=== PATIENT | female | born 1960 | race Caucasian/White ===

== ENCOUNTER 2017-09-09 13:50 | Outpatient (CLI) | payer OTHER ==
--- NOTE | 2017-09-09 14:35 | BD ---
BONE DENSITOMETRY USING DEXA: Date: 09/09/17 HISTORY: Postmenopausal screening for osteoporosis. FINDINGS: Lumbar Spine: BMD (g/cm2) L1 1.091 T-Score: 0.9 Z-Score: 1.9 L2 1.154 T-Score: 1.1 Z-Score: 2.3 L3 1.184 T-Score: 0.0 Z-Score: 2.1 L4 1.160 T-Score: 0.9 Z-Score: 2.1 L1-L4 1.146 T-Score: 0.9 Z-Score: 2.1 Femoral Neck: 0.710 T-Score: -1.3 Z-Score: -0.1 Total Femur: 0.854 T-Score: -0.7 Z-Score: 0.0 The 10 year fracture risk for a major osteoporotic fracture is 31% and for a hip fracture is 1.3%. IMPRESSION: Osteopenia. POS: SHOAIB
--- NOTE | 2017-09-09 14:50 | MMO ---
BILATERAL DIGITAL SCREENING MAMMOGRAMS: Date: 09/09/17 This patient's mammogram was interpreted with the assistance of computer-aided detection. Comparison made with exams of 06/28/16, 05/10/15, and 03/31/14. FINDINGS: The breast tissue is heterogeneously dense, which may reduce the sensitivity of mammography. No susp icious masses or calcifications are identified. IMPRESSION: BIRADS 1: Negative Return to annual mammographic screening. POS: SHOAIB
== END 2017-09-09 13:51 | disposition home or self-care (01) ==
LOC: MAMMO 13:50
PROVIDERS: ATTEND Family Medicine
DX: Z12.31 Encounter for screening mammogram for malignant neoplasm of breast (principal); Z00.00 Encounter for general adult medical examination without abnormal findings; M85.80 Other specified disorders of bone density and structure, unspecified site
CPT/HCPCS: 77067; 77080; G0202

== ENCOUNTER 2018-09-25 11:48 | Outpatient (CLI) | payer OTHER | END 2018-09-25 11:49 | disposition home or self-care (01) | LOC: BICMAMMO 11:48 | PROVIDERS: ATTEND Family Medicine | DX: Z12.31 Encounter for screening mammogram for malignant neoplasm of breast (principal); Z80.3 Family history of malignant neoplasm of breast | CPT/HCPCS: 77063; 77067 ==

== ENCOUNTER 2019-08-10 07:35 | Day surgery (SDC) | payer OTHER ==
[2019-08-03 16:27] VITALS: BMI 34.6
[2019-08-10] MEDS ORDERED: Gabapentin 300 MG CAP ONE (07:48)
[2019-08-10] MEDS ORDERED: Famotidine/PF 20 mg/2ml Vial ONE ×2 (07:48→10:07)
[2019-08-10] MEDS ORDERED: Midazolam HCl 2 mg/2 ml Vial ONE (09:00)
[2019-08-10] MEDS ORDERED: Fentanyl 100 MCG/2 ML VIAL ONE ×2 (10:07→12:27)
[2019-08-10] MEDS ORDERED: Lidocaine 1% w/Epinephrine 1:100K 20 ML VIAL ONE (10:10)
[2019-08-10] MEDS ORDERED: SUGAMMADEX SODIUM 200 MG/2 ML VIAL ONE (10:25)
--- NOTE | 2019-08-10 14:21 | OP ---
DATE OF PROCEDURE: 08/10/2019 PREOPERATIVE DIAGNOSIS: Rectocele. POSTOPERATIVE DIAGNOSIS: Rectocele. PROCEDURE PERFORMED: Posterior colporrhaphy. ANESTHESIA: General endotracheal. GUEST RELATIONS OFFICER SURGEON: Ethel Soto PA-C ESTIMATED BLOOD LOSS: 25 mL. IVF: 1300 mL crystalloid. URINE OUTPUT: 75 mL clear urine at the beginning. COMPLICATIONS: None. DRAINS: None. PATHOLOGY: None. FINDINGS: Moderate-sized stage II rectocele. Minimal cystocele was present. There was no uterine descent. The uterus was well supported. There was not a significant enough cystocele for any anterior repair. Excellent hemostasis present. No suture material or perforation into the rectum. DESCRIPTION OF PROCEDURE: The patient was taken to operating room, where general anesthesia was obtained without difficulty. The patient was prepped and draped in a sterile fashion in dorsal lithotomy position. After draining the bladder, two Allis' were placed at 5 and 7 o'clock on the introitus, and the posterior vaginal mucosa was infiltrated with 1% lidocaine with epinephrine 10 mL. The Metzenbaum's were then used to incise in the midline posteriorly at the introitus and the vaginal mucosa was undermined with the Metzenbaum's and then incised. Allis' were placed on the edges of the vaginal mucosa. This was taken almost all the way up to the cervix. The rectovaginal fascia was then dissected off the vaginal mucosa with the use of Metzenbaum's as well as a fluffed-out Ray-Chicho. Hemostasis was achieved with the Bovie. Plication stitches of 0 Vicryl were then placed from proximal to distal with excellent plication. There were defects in the rectovaginal fascia that were repaired and incorporated into the plication. At that time, the vaginal mucosa was trimmed and then closed with 0 Vicryl in a [id number] fashion with excellent hemostasis noted. The rectum was then examined and no suture material was present in the rectum with excellent plication. Vaginal packing with a moist Kerlix was placed in the vagina. All other instruments were removed out of the vagina. The patient tolerated the procedure well. Sponge and needle counts were correct x2. The patient was taken to recovery room in stable condition. The patient received Ancef 2 g prior to the procedure. Job ID: [id number]
== END 2019-08-10 14:45 | disposition home or self-care (01) ==
LOC: SDC 07:35
PROVIDERS: ATTEND Student in an Organized Health Care Education/Training Program
PROC: 0JQC0ZZ Repair Pelvic Region Subcutaneous Tissue and Fascia, Open Approach (ICD-10-PCS; principal; 2019-08-10)
DX: N81.6 Rectocele (principal); M85.80 Other specified disorders of bone density and structure, unspecified site; G89.18 Other acute postprocedural pain; Z79.899 Other long term (current) drug therapy; Z88.2 Allergy status to sulfonamides
CPT/HCPCS: J0131; J0690; J2001; J2250; J3010; S0028

== ENCOUNTER 2019-08-17 15:24 | Outpatient (CLI) | payer OTHER ==
--- NOTE | 2019-08-17 16:19 | RAD ---
LEFT HIP TWO VIEWS: 08/17/19 HISTORY: Left hip pain. COMPARISON: Prior exam dated 02/04/16. FINDINGS: There is moderate to severe osteoarthrosis of the left hip. There are bilateral tubal ligation clips. No acute fracture or subluxation is evident. IMPRESSION: Degenerative arthrosis of the left hip. POS: OFF
--- NOTE | 2019-08-17 16:20 | RAD ---
AP VIEW OF THE PELVIS: 08/17/19 INDICATION: History of left hip pain. COMPARISON: None. FINDINGS: There is moderate to severe left and moderate right degenerative arthrosis of the hips. There are zamzam ateral tubal ligation clips. There are small phleboliths in the lower pelvis. No acute osseous abnorm ality is evident. IMPRESSION: Bilateral degenerative arthrosis of the hip. POS: OFF
== END 2019-08-17 15:25 | disposition home or self-care (01) ==
LOC: BICRAD 15:24
PROVIDERS: ATTEND Physician Assistant
DX: M25.552 Pain in left hip (principal); M16.0 Bilateral primary osteoarthritis of hip
CPT/HCPCS: 72170

== ENCOUNTER 2019-09-01 08:59 | Outpatient (CLI) | payer OTHER ==
--- NOTE | 2019-09-01 12:02 | MRI ---
LUMBAR SPINE MRI WITH AND WITHOUT CONTRAST: Date: 09/01/19 COMPARISON: None. HISTORY: Low back pain with left-sided hip pain radiating into the left lower extremity. TECHNIQUE: Multiplanar, multisequence MR imaging of the lumbar spine obtained with and without contrast. FINDINGS: The sagittal STIR imaging demonstrates no focal area of osseous marrow edema. No anterolisthesis or retrolisthesis noted within the lumbar spine. On the basis of five lumbar-type vertebral bodies, the conus medullaris terminates at the L1 level. T11-12: There is disc space narrowing and disc desiccation with mild disc bulge and mild bilateral f acet hypertrophy. Mild bilateral neural foraminal stenosis noted, right greater than left. Mild centr al canal stenosis. T12-L1: Mild bilateral facet hypertrophy. Disc space narrowing and disc desiccation with mild disc b ulge. No significant central canal or neural foraminal stenosis. L1-2: Mild bilateral facet hypertrophy. No significant central canal or neural foraminal stenosis. L2-3: Bilateral facet hypertrophy with hypertrophy of ligamentum flavum. There is disc space narrowi ng, disc desiccation, and mild disc bulge with mild central canal stenosis. Mild bilateral facet hype rtrophy. No significant neural foraminal stenosis. L3-4: Mild bilateral facet hypertrophy. Disc space narrowing, disc desiccation, and mild disc bulge. Mild right lateral recess stenosis and mild right neural foraminal stenosis. No significant left mychal ral foraminal stenosis. L4-5: Disc space narrowing, disc desiccation, and mild disc bulge. Bilateral facet hypertrophy. Mild bilateral neural foraminal stenosis. No significant central canal stenosis. L5-S1: There is disc desiccation and mild disc bulge. There is bilateral facet hypertrophy. Mild zamzam ateral neural foraminal stenosis. No significant central canal stenosis. The visualized retroperitoneal structures demonstrate no acute findings. Postcontrast imaging demonstrates no abnormal enhancement involving the contents of the thecal sac, i wilfred intervertebral discs, or the imaged osseous structures. IMPRESSION: Multilevel degenerative change within the lumbar spine as described above. POS: TPC
== END 2019-09-01 09:00 | disposition home or self-care (01) ==
LOC: BICMRI 08:59
PROVIDERS: ATTEND Physician Assistant
DX: M25.552 Pain in left hip (principal); M54.32 Sciatica, left side; M54.5 Low back pain; M47.816 Spondylosis without myelopathy or radiculopathy, lumbar region
CPT/HCPCS: 72158

== ENCOUNTER 2019-11-29 14:52 | Outpatient (CLI) | payer OTHER ==
--- NOTE | 2019-11-29 16:13 | MMO ---
Bilateral MAMMO Bilat Screen [facility]. CLINICAL HISTORY: Patient is 59 years old and is seen for screening. The patient has no family history of breast cancer. The patient has no personal history of cancer. VIEWS: The views performed were: bilateral craniocaudal with tomosynthesis and bilateral mediolateral oblique with tomosynthesis. FILMS COMPARED: The present examination has been compared to prior imaging studies performed at [facility] on 05/10/2015, 06/28/2016, 09/09/2017 and 09/25/2018. This study has been interpreted with the assistance of computer-aided detection. MAMMOGRAM FINDINGS: The breasts are heterogeneously dense, which could obscure a lesion on mammography. There are no suspicious masses, suspicious calcifications, or new areas of architectural distortion. IMPRESSION: THERE IS NO MAMMOGRAPHIC EVIDENCE OF MALIGNANCY. A ROUTINE FOLLOW-UP MAMMOGRAM IN 1 YEAR IS RECOMMENDED. THE RESULTS OF THIS EXAM WERE SENT TO THE PATIENT. ACR BI-RADS Category 1 - Negative MAMMOGRAPHY NOTE: 1. A negative mammogram report should not delay a biopsy if a dominant of clinically suspicious mass is present. 2. Approximately 10% to 15% of breast cancers are not detected by mammography. 3. Adenosis and dense breasts may obscure an underlying neoplasm. Reported by: RIYA GUZMAN MD Electonically Signed: [id number]
== END 2019-11-29 14:53 | disposition home or self-care (01) ==
LOC: BICMAMMO 14:52
PROVIDERS: ATTEND Family Medicine
DX: Z12.31 Encounter for screening mammogram for malignant neoplasm of breast (principal)
CPT/HCPCS: 77063; 77067

== ENCOUNTER 2020-12-25 10:44 | Outpatient (CLI) | payer OTHER ==
--- NOTE | 2020-12-25 11:37 | MMO ---
Bilateral MAMMO Bilat Screen [facility]. CLINICAL HISTORY: Patient is 60 years old and is seen for screening. The patient has the following family history of breast cancer: maternal grandmother. The patient has no personal history of cancer. VIEWS: The views performed were: bilateral craniocaudal with tomosynthesis and bilateral mediolateral oblique with tomosynthesis. FILMS COMPARED: The present examination has been compared to prior imaging studies performed at [facility] on 06/28/2016, 09/09/2017, 09/25/2018 and 11/29/2019. This study has been interpreted with the assistance of computer-aided detection. MAMMOGRAM FINDINGS: The breasts are heterogeneously dense, which could obscure a lesion on mammography. There are no suspicious masses, suspicious calcifications, or new areas of architectural distortion. IMPRESSION: THERE IS NO MAMMOGRAPHIC EVIDENCE OF MALIGNANCY. A ROUTINE FOLLOW-UP MAMMOGRAM IN 1 YEAR IS RECOMMENDED. THE RESULTS OF THIS EXAM WERE SENT TO THE PATIENT. ACR BI-RADS Category 1 - Negative MAMMOGRAPHY NOTE: 1. A negative mammogram report should not delay a biopsy if a dominant of clinically suspicious mass is present. 2. Approximately 10% to 15% of breast cancers are not detected by mammography. 3. Adenosis and dense breasts may obscure an underlying neoplasm. Reported by: KELTON UGALDE MD Electonically Signed: [id number]
--- NOTE | 2020-12-25 11:52 | BD ---
DEXA BONE DENSITY STUDY: Date: 12/25/2020 HISTORY: Osteoporosis screening. COMPARISON: None. FINDINGS: Lumbar Spine: BMD (g/cm2) L1 1.014 T-Score: 0.2 Z-Score: 1.4 L2 1.147 T-Score: 1.1 Z-Score: 2.4 L3 1.163 T-Score: 0.7 Z-Score: 2.1 L4 1.162 T-Score: 0.9 Z-Score: 2.4 L1-L4 1.123 T-Score: 0.7 Z-Score: 2.1 Left Femoral Neck: 0.796 T-Score: -0.5 Z-Score: 0.8 Total Femur: 0.918 T-Score: -0.2 Z-Score: 0.7 WHO Classification: Normal. IMPRESSION: Normal bone mineral density. POS: HOME
== END 2020-12-25 10:45 | disposition home or self-care (01) ==
LOC: BICMAMMO 10:44
PROVIDERS: ATTEND Family Medicine
DX: Z12.31 Encounter for screening mammogram for malignant neoplasm of breast (principal); M85.80 Other specified disorders of bone density and structure, unspecified site; Z80.3 Family history of malignant neoplasm of breast
CPT/HCPCS: 77063; 77067; 77080

== ENCOUNTER 2021-01-03 06:08 | Emergency (ER) | payer OTHER ==
[2021-01-03] MEDS ORDERED: Ketorolac Tromethamine 30 MG/ML VIAL ONE (06:23)
[2021-01-03] MEDS ORDERED: Ondansetron ODT 8 MG TAB ONE (07:12)
--- NOTE | 2021-01-03 08:04 | CT ---
PRELIMINARY REPORT/[facility]/EMERGENCY AFTER HOURS PROCEDURE EXAM: CT Head Without Intravenous Contrast. CLINICAL HISTORY: 60-year-old female with a history of hypertension presents to the ED today with a complaint of head i njury secondary to fall. 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 She states that she slipped TECHNIQUE: Axial computed tomography images of the head/brain without intravenous contrast. COMPARISON: None provided. FINDINGS: BRAIN: No acute intraparenchymal hemorrhage. No mass lesion. No CT evidence for acute territorial infarct. N o midline shift or extra-axial collection. VENTRICLES: No hydrocephalus. ORBITS: The orbits are unremarkable. SINUSES AND MASTOIDS: The paranasal sinuses and mastoid air cells are clear. SOFT TISSUES: There is posterior parietal scalp edema/hematoma. BONES: No acute skull fracture. IMPRESSION: No acute intracranial abnormality. Posterior parietal scalp edema/hematoma noted. ELECTRONICALLY SIGNED BY: Jonah Oh MD Jan 03, 2021 7:01:49 AM ADVERTISING ACCOUNT MANAGER This report is intended for review by the ordering physician only, in accordance of law. If you recei ve this report in error, please call [facility] at [phone]. FINAL REPORT Exam: Head CT without contrast HISTORY: Pain. Hypertension. Injury. COMPARISON: none FINDINGS: Hemorrhage: No intraparenchymal hemorrhage or extra-axial hematoma. Brain parenchyma: Cortical hurley-white matter differentiation is preserved. No mass effect or midline shift. Basilar cisterns are patent. Ventricular system: Ventricles and sulci are patent and symmetric. Calvarium: Intact. Scalp: Posterior scalp hematoma. Sinuses and mastoid air cells: Adequate aeration. IMPRESSION: 1. This report is in agreement with initial report by [facility]. 2. Posterior scalp hematoma. No intracranial post traumatic sequelae. Transcribed Date/Time: 01/03/2021 8:42 AM
== END 2021-01-03 07:40 | disposition home or self-care (01) ==
LOC: ERS 06:08
DX: S00.03XA Contusion of scalp, initial encounter (principal); I10 Essential (primary) hypertension; Z79.899 Other long term (current) drug therapy; W00.0XXA Fall on same level due to ice and snow, initial encounter
CPT/HCPCS: 70450; 96372; J1885; Q0162

== ENCOUNTER 2021-04-04 08:04 | Outpatient (CLI) | payer OTHER | END 2021-04-04 08:05 | disposition home or self-care (01) | LOC: BICMRI 08:04 | PROVIDERS: ATTEND Family Medicine | DX: S89.92XD Unspecified injury of left lower leg, subsequent encounter (principal); M25.462 Effusion, left knee; M22.42 Chondromalacia patellae, left knee; M23.222 Derangement of posterior horn of medial meniscus due to old tear or injury, left knee ==

== ENCOUNTER 2021-06-11 18:12 | Outpatient (CLI) | payer OTHER ==
[2019-08-03 16:38] LABS: Hemoglobin 11.6 g/dL (12.0-16.0); Mean Corpuscular HGB CONC 34.9 g/dL (32.0-36.0); Mean Corpuscular Hemoglobin 29.8 pg (27.0-31.0); Mean Corpuscular Volume 85.3 fL (78.0-98.0); Mean Platelet Volume 6.7 fL (7.4-10.4); Platelet Count 273 thou/uL (130-400); RBC Distribution Width 12.2 % (11.5-14.5); White Blood Cell (WBC) Count 7.9 thou/uL (4.8-10.8)
[2019-08-03 17:08] LABS: Anion Gap 11 mmol/L (10-20); BUN (Urea Nitrogen) 16 mg/dL (9.8-20.1); Calc. Creatinine Clearance 0 mL/min (70-130); Calcium 9.6 mg/dL (7.8-10.44); Carbon Dioxide 28 mmol/L (22-29); Chloride 104 mmol/L (98-107); Glucose 105 mg/dL (70-105); Potassium 3.7 mmol/L (3.5-5.1); Sodium 139 mmol/L (136-145)
[2021-06-11 18:44] LABS: #Eosinphils 0.3 10x3/uL (0.0-0.5); #Monocytes 0.7 10x3/uL (0.0-1.1); #Neutrophils 3.3 10x3/uL (1.5-8.4); %Basophils 0.5 % (0.0-2.0); %Eosinophils 4.4 % (0.0-6.0); %Lymphocytes 41.6 % (18.0-47.0); %Monocytes 9.5 % (0.0-10.0); %Neutrophils 43.7 % (40.0-75.0); Hemoglobin 11.8 g/dL (12.0-15.5); Mean Corpuscular HGB CONC 33.2 g/dL (32.0-36.0); Mean Corpuscular Hemoglobin 29.7 pg (27.0-33.0); Mean Corpuscular Volume 89.4 fl (81.6-98.3); Platelet Count 299 10x3/uL (150-450); RBC Distribution Width 12.9 % (11.5-14.5); Red Blood Cell (RBC) Count 3.97 10x6/uL (3.90-5.03); White Blood Cell (WBC) Count 7.5 10x3/uL (3.5-10.5)
[2021-06-11 19:00] LABS: Anion Gap 13 mmol/L (10-20); BUN (Urea Nitrogen) 16 mg/dL (9.8-20.1); Calc. Creatinine Clearance 0 mL/min (70-130); Calcium 9.5 mg/dL (7.8-10.44); Carbon Dioxide 28 mmol/L (22-29); Chloride 104 mmol/L (98-107); Glucose 79 mg/dL (70-105); Potassium 3.4 mmol/L (3.5-5.1); Sodium 142 mmol/L (136-145)
== END 2021-06-11 18:13 | disposition home or self-care (01) ==
LOC: LABBT 18:12
PROVIDERS: ATTEND Orthopaedic Surgery
DX: Z01.812 Encounter for preprocedural laboratory examination (principal); S83.242A Other tear of medial meniscus, current injury, left knee, initial encounter
CPT/HCPCS: 80048; 85025; 85027; 86850; 86900; 86901

== ENCOUNTER 2022-01-09 11:35 | Outpatient (CLI) | payer BC | END 2022-01-09 11:36 | disposition home or self-care (01) | LOC: BICMAMMO 11:35 | PROVIDERS: ATTEND Family Medicine | DX: Z12.31 Encounter for screening mammogram for malignant neoplasm of breast (principal); Z80.3 Family history of malignant neoplasm of breast | CPT/HCPCS: 77063; 77067 ==

== ENCOUNTER 2023-08-05 12:55 | Outpatient (CLI) | payer BC | END 2023-08-05 12:56 | disposition home or self-care (01) | LOC: BICMAMMO 12:55 | PROVIDERS: ATTEND Family Medicine | DX: Z13.820 Encounter for screening for osteoporosis (principal); M85.851 Other specified disorders of bone density and structure, right thigh; Z78.0 Asymptomatic menopausal state | CPT/HCPCS: 77080 ==

== ENCOUNTER 2024-04-27 14:29 | Outpatient (CLI) | payer BC | END 2024-04-27 14:30 | disposition home or self-care (01) | LOC: BICMAMMO 14:29 | PROVIDERS: ATTEND Family Medicine | DX: Z12.31 Encounter for screening mammogram for malignant neoplasm of breast (principal); Z80.3 Family history of malignant neoplasm of breast | CPT/HCPCS: 77063; 77067 ==